=== PATIENT | male | born 1970 | race Hispanic/Latino ===

== ENCOUNTER 2017-04-29 11:38 | Emergency (ER) | payer OTHER ==
[2017-04-29 11:58] VITALS: BP 139/98; PULSE 94; RESP 18; TEMP 97.8; O2SAT 99
[2017-04-29] MEDS ORDERED: Naproxen 500 MG TAB PO ONE (13:45)
--- NOTE | 2017-04-29 14:41 | RAD ---
PROCEDURE: Right Hand Radiographs. HISTORY: trauma COMPARISON: None. FINDINGS: BONES: A nondisplaced metacarpal oblique fracture with carpal/metacarpal extension present. A tiny chip fracture fragment at the base -possible. The fracture apex who points volarly JOINTS: No osteoarthritic changes. SOFT TISSUES: Normal. OTHER FINDINGS: None. IMPRESSION: Fifth metacarpal nondisplaced fracture with carpal/metacarpal extension. Comments: Opaque findings were communicated to the ER Raj SOLORZANO, taking care of the patient on 04/29/2017 at 2:38 p.m.
--- NOTE | 2017-04-29 14:51 | RAD ---
PROCEDURE: Right Wrist Radiographs. HISTORY: trauma COMPARISON: Right hand x-ray same-day FINDINGS: BONES: Comminuted fracture nondisplaced metacarpal base with carpal/metacarpal extension No carpal bone fractures noted JOINTS: No dislocation. Trace subchondral cystic changes scapholunate articulation SOFT TISSUES: Ulnar-sided soft tissue swelling 5th metacarpal base OTHER FINDINGS: None. IMPRESSION: Comminuted fracture nondisplaced metacarpal base with carpal/metacarpal extension No carpal bone fractures noted
--- NOTE | 2017-04-29 14:57 | RAD ---
PROCEDURE: Left Wrist Radiographs. HISTORY: trauma COMPARISON: None. FINDINGS: BONES: Distal radial fracture best seen on the lateral view. Kevon remarked JOINTS: Normal. No dislocation. SOFT TISSUES: Normal. OTHER FINDINGS: None. IMPRESSION: Nondisplaced intra-articular fracture distal left radius. Concordant results with the preliminary interpretation rendered by the emergency department physician procedure.
--- NOTE | 2017-04-29 15:01 | ED PDOC ---
Upper Extremity Pain/Injury Time Seen by Provider: 04/29/17 12:52 Chief Complaint (Nursing): Upper Extremity Problem/Injury Chief Complaint (Provider): Upper Extremity Problem/Injury History Per: Patient History/Exam Limitations: no limitations Onset/Duration Of Symptoms: Days (x1) Current Symptoms Are (Timing): Still Present Additional Complaint(s): 47 year old male with no significant past medical history, who presents to the ED complaining of bilateral wrist pain x1 day. Patient states he was at work on a ladder approximately 10 feet from the ground when the ladder came up under him and he fell down face forward, injuring his right hand, right wrist, and left wrist. Denies head injury, neck pain, abdominal pain, chest pain, or other injuries. PMD: None provided Past Medical History Reviewed: Historical Data, Nursing Documentation, Vital Signs Vital Signs: Last Vital Signs Temp 97.8 F 04/29/17 11:56 Pulse 94 H 04/29/17 11:56 Resp 18 04/29/17 11:56 BP 139/98 H 04/29/17 11:56 Pulse Ox 99 04/29/17 11:56 - Medical History PMH: No Chronic Diseases - Surgical History Surgical History: No Surg Hx - Family History Family History: States: Unknown Family Hx - Allergies Allergies/Adverse Reactions: Allergies Allergy/AdvReac Type Severity Reaction Status Date / Time No Known Allergies Allergy Verified 04/29/17 11:56 Review of Systems ROS Statement: Except As Marked, All Systems Reviewed And Found Negative Cardiovascular: Negative for: Chest Pain Gastrointestinal: Negative for: Abdominal Pain Musculoskeletal: Positive for: Hand Pain (right hand, right wrist, and left wrist). Negative for: Neck Pain Neurological: Negative for: Headache Physical Exam - Reviewed Nursing Documentation Reviewed: Yes Vital Signs Reviewed: Yes - Physical Exam Appears: Positive for: Non-toxic, No Acute Distress Head Exam: Positive for: ATRAUMATIC, NORMAL INSPECTION, NORMOCEPHALIC Skin: Positive for: Normal Color, Warm, Dry. Negative for: Rash Eye Exam: Positive for: EOMI, Normal appearance, PERRL Neck: Positive for: Normal, Painless ROM, Supple Cardiovascular/Chest: Positive for: Regular Rate, Rhythm. Negative for: Chest Non Tender, Murmur Respiratory: Positive for: Normal Breath Sounds. Negative for: Respiratory Distress Pulses-Radial (L): 2+ Pulses-Radial (R): 2+ Gastrointestinal/Abdominal: Positive for: Normal Exam, Bowel Sounds, Soft. Negative for: Tenderness Back: Positive for: Normal Inspection. Negative for: L CVA Tenderness, R CVA Tenderness, Vertebral Tenderness Extremity: Positive for: Tenderness (right dorsal medial hand, right dorsal wrist, left dorsal wrist), Capillary Refill (less than 2 seconds bilaterally). Negative for: Deformity Neurologic/Psych: Positive for: Alert, Oriented (x3). Negative for: Motor/ Sensory Deficits - ECG O2 Sat by Pulse Oximetry: 99 (RA) Pulse Ox Interpretation: Normal - Progress ED Course And Treament: L wrist immobilized in orthoglass volar splint applied by help desk technician. R hand immobilized in orthoglass ulnar gutter splint applied by help desk technician. Instructed to f/u ortho for further evaluation. Medical Decision Making Medical Decision Making: Time: 13:33 Plan: --Naproxen 500 mg PO --X-Ray right hand 3 views --X-Ray right wrist 3 views --X-Ray left wrist 3 views --Reevaluation Scribe Attestation: Documented by Black Mauro acting as a scribe for Raj Mckeon PA-C. MD Scribe Attestation: All medical record entries made by the Scribe were at my direction and personally dictated by me. I have reviewed the chart and agree that the record accurately reflects my personal performance of the history, physical exam, medical decision making, and the department course for this patient. I have also personally directed, reviewed, and agree with the discharge instructions and disposition. Disposition - Clinical Impression Clinical Impression: Right hand fracture, Wrist fracture, left - Patient ED Disposition Is Patient to be Admitted: No - Disposition Referrals: Akil Christine III, MD [Staff Provider] - Sydni Guido MD [Staff Provider] - Disposition Time: 15:20 Condition: STABLE Instructions: Hand Fracture (ED), Wrist Fracture in Adults (ED), Splint Care ( ED) Forms: [employer] (Chinese), [facility] ED School/Work Excuse Print Language: MALAGASY
== END 2017-04-29 15:47 | disposition home or self-care (01) ==
LOC: H.ER 11:38
DX: S62.91XA Unspecified fracture of right hand, initial encounter for closed fracture (principal); S62.002A Unspecified fracture of navicular [scaphoid] bone of left wrist, initial encounter for closed fracture; W11.XXXA Fall on and from ladder, initial encounter; Y99.0 Civilian activity done for income or pay